=== PATIENT | male | born 1995 | race Two or more races ===

== ENCOUNTER 2024-08-02 14:14 | Emergency (ER) | payer BC ==
[~2024-08-02] VITALS: Ht 177.8 cm; Wt 117.9 kg
[2024-08-02 15:29] LABS: BASOPHILS # (AUTO) 0.1 K/UL (0.0-0.2); BASOPHILS % (AUTO) 0.6 % (0.0-2.0); DIFFERENTIAL COMMENT 0; EOSINOPHILS # (AUTO) 0.2 K/uL (0.0-0.7); EOSINOPHILS % (AUTO) 1.9 % (0.0-7.0); HEMATOCRIT 44.7 % (36.7-47.1); LYMPHOCYTES # (AUTO) 2.8 K/uL (0.8-4.8); MEAN CORPUSCULAR HGB CONC 34 g/dL (32.5-36.3); MEAN CORPUSCULAR VOLUME 77.3 fL (73.0-96.2); MONOCYTES # (AUTO) 0.7 K/uL (0.1-1.30); MONOCYTES % (AUTO) 6.9 % (0.0-11.0); NEUTROPHILS # (AUTO) 5.9 K/uL (1.8-8.9); NEUTROPHILS % (AUTO) 61.6 % (38.5-71.5); PLATELET COUNT (AUTO) 253 K/uL (152-348); RED BLOOD CELL COUNT(AUTO) 5.78 MIL/uL (4.06-5.63); RED CELL DISTRIBUTION WIDTH 14.1 % (12.1-16.2); WHITE BLOOD COUNT (AUTO) 9.5 K/uL (3.6-10.2)
[2024-08-02 15:34] LABS: *BILIRUBIN,URIN NEGATIVE (NEGATIVE); *BLOOD, URINE NEGATIVE (NEGATIVE); *CLARITY,URINE CLEAR (CLEAR); *COLOR,URINE YELLOW (YELLOW); *KETONES,URINE NEGATIVE (NEGATIVE); *PROTEIN,URINE TRACE (NEGATIVE); *UROBILINOGEN,URINE 0.2 E.U./dl (NORMAL); LEUKOCYTE ESTERASE ,URINE NEGATIVE (NEGATIVE); NITRITE, URINE NEGATIVE (NEGATIVE); PH,URINE 5.5 (5.0-8.0); UGLUCOSE NEGATIVE (NEGATIVE)
[2024-08-02 15:37] LABS: CALCIUM 8.8 mg/dL (8.5-10.1)
[2024-08-02 15:43] LABS: ALBUMIN 3.8 g/dL (3.4-5.0); BILIRUBIN,DIRECT 0.2 mg/dL (0.0-0.2); BILIRUBIN,TOTAL 0.5 mg/dL (0.2-1.0); TOTAL PROTEIN, SERUM 8.1 g/dL (6.4-8.2)
[2024-08-02 16:03] LABS: RBC,URINE 0-3 /HPF (0-3); WBC,URINE NONE SEEN /HPF (0-3)
[2024-08-02 16:04] LABS: BACTERIA,URINE NONE SEEN /HPF (NONE SEEN); SQUAMOUS EPITHELIAL CELL,UR MANY /HPF (NONE SEEN)
[2024-08-02] MEDS ORDERED: SWABABLE VALVE TRANSFER SET EA MC ONE (16:10)
[2024-08-02] MEDS ORDERED: IV NORMAL SALINE 250 ML IV ONE (16:10)
[2024-08-02] MEDS ORDERED: IOHEXOL 300MG/ML 100 ML INFUS..BTL ONE (16:10)
[2024-08-02 18:28] VITALS: BP 134/80; TEMP 97.7; O2SAT 98
== END 2024-08-02 18:36 | disposition home or self-care (01) ==
LOC: ER 14:14
DX: R10.30 Lower abdominal pain, unspecified (principal); E88.810 Metabolic syndrome; K52.9 Noninfective gastroenteritis and colitis, unspecified
CPT/HCPCS: 99285; 74177; 80076; 80048; 81001; 85025; 36415; 74018; Q9967; A4606; A4663